=== PATIENT | female | born 1940 | race Caucasian/White ===

== ENCOUNTER 2016-09-16 11:06 | Inpatient (IN) | payer MEDICARE ==
[~2016-09-16 11:06] MED LIST: ASPIR-LOW81 M1 PO; ATARAX25 MG PO; BENICAR20 MG; COZAAR50 M1 PO; DELTASONE50 MG PO; EFFEXOR37.5 MG; EFFEXOR75 MG; ELESTAT5 ML; FENOFIBRATE134 M1 PO; GLIPIZIDE ER5 M1; GLUCOPHAGE500 M3 PO; GLUCOTROL XL5 MG; LASIX20 M1 PO; LASIX20 MG; LEVOTHYROXINE25 MCG; LIPOFEN150 MG; MONOPRIL10 MG; NATURE THROID PO; NORVASC5 M2 PO; SYNTHROID25 MCG; ULTRAM50 M1 PO; VENLAFAXINE H37.5 M4 PO; ZETIA10 MG; [UNRECOGNIZED DRUG - SUPPLY]
[2016-09-16 12:48] LABS: ANION GAP 13 mmol/L (0-20); BLOOD UREA NITROGEN 18 mg/dl (6-24); CALCIUM 8.9 mg/dl (8.5-10.5); CARBON DIOXIDE-VENOUS 24 mmol/L (22-32); CHLORIDE 109 mmol/l (96-110); CREATININE 1.04 mg/dl (0.50-1.10); GLUCOSE 117 mg/dL (70-110); POTASSIUM 3.5 mmol/L (3.7-5.1); SODIUM 142 mmol/L (135-145); eGFR VALUE FOR BLACK 60 mL/Min
--- NOTE | 2016-09-16 22:08 | NUR ---
VN ROUNDING-DEFERRED ROUNDING PATIENT IS A NEW POST OP THAT JUST GOT BACK THIS EVENING. CHART REVIEWED
--- NOTE | 2016-09-19 08:25 | NUR ---
VIRTUAL CARE NOTE: PT SITTING ON CHAIR, FAMILY AT BEDISE. PT STATES FEELING MUCH BETTER TODAY, EPIDURAL REMOVED RECENTLY IT HELPS WITH THE ITCHING. PT TOLERATES PO WELL, DENIES ANY ISSUES. PLAN OF CARE DISCUSSED WITH PT AND FAMILY, DISCHARGE PLAN REIVEWED, [facility] OPTION OFFERED IF NEEDED AT THIS CHART, PT SAID SHE WILL HAVE 3 DAUGHTERS CHECKING ON HER AT HOME. ALL QUESTIONS ANSWERED, NO FURTHER QUESTIONS OR CONCERNS.
[2016-09-21] MEDS ORDERED: NORCO 5-325 TA1 EACH PO (11:19)
--- NOTE | 2016-09-21 11:42 | NUR ---
VIRTUAL NURSE NOTE: PT RESTING ON CHAIR, STATES DOING VERY GOOD, READY FOR DISCHARGE INSTRUCTIONS. INFORMATION GIVEN TO PT. PT DENIES QUESTIONS OR CONCERNS. HER RIDE WILL BE HERE IN A FEW HRS YET. INFORMED FLOOR NURSE DC TEACHING DONE.
== END 2016-09-21 13:30 | disposition home health service (06) | DRG 737 ==
LOC: SHSB 11:06 → ORW 14:21 → PACU 16:43 → 5WD 17:50
PROVIDERS: ADMIT Surgery
PROC: 0UT20ZZ Resection of Bilateral Ovaries, Open Approach (ICD-10-PCS; principal; 2016-09-16)
PROC: 0UTC0ZZ Resection of Cervix, Open Approach (ICD-10-PCS; principal; 2016-09-16)
PROC: 0DBW0ZX Excision of Peritoneum, Open Approach, Diagnostic (ICD-10-PCS; principal; 2016-09-16)
PROC: 0UT90ZZ Resection of Uterus, Open Approach (ICD-10-PCS; principal; 2016-09-16)
PROC: 0UT70ZZ Resection of Bilateral Fallopian Tubes, Open Approach (ICD-10-PCS; principal; 2016-09-16)
PROC: 0DBS0ZZ (ICD-10-PCS; principal; 2016-09-16)
PROC: 0DTF0ZZ Resection of Right Large Intestine, Open Approach (ICD-10-PCS; 2016-09-16)
PROC: 5A1935Z Respiratory Ventilation, Less than 24 Consecutive Hours (ICD-10-PCS; 2016-09-17)
DX: C56.1 Malignant neoplasm of right ovary (principal); C85.90 Non-Hodgkin lymphoma, unspecified, unspecified site; E11.9 Type 2 diabetes mellitus without complications; I10 Essential (primary) hypertension; E03.9 Hypothyroidism, unspecified; F32.9 Major depressive disorder, single episode, unspecified; M19.90 Unspecified osteoarthritis, unspecified site; N80.9 Endometriosis, unspecified; L29.9 Pruritus, unspecified; K63.9 Disease of intestine, unspecified
CPT/HCPCS: J1170; J1200; J1335; J1940; J2250; J2795; J3010; J7030